=== PATIENT | female | born 1970 | race Caucasian/White ===

== ENCOUNTER 2016-07-17 17:17 | Emergency (ER) | payer OTHER ==
[~2016-07-17] VITALS: Ht 165.1 cm; Wt 54.4 kg
[~2016-07-17 17:17] MED LIST: ZANTAC150 MG PO
[2016-07-17 18:21] VITALS: BP 146/101
--- NOTE | 2016-07-17 19:05 | NUR ---
PATIENT TO BED 06.
--- NOTE | 2016-07-17 19:38 | NUR ---
PATIENT PRESENTS TO ED WITH RT FLANK PAIN . PT STATES PAIN HAS BEEN SHARP AND CONSTANT FOR THE PAST 2 DAYS. HX OF ASTHMA . DENIES N/V/D; SKIN IS PINK/WARM/DRY; AAOX4 WITH EVEN AND STEADY GAIT; LUNGS CLEAR BL; HR EVEN AND REGULAR; PT DENIES ANY FEVER, CP, SOB, OR COUGH AT THIS TIME; PATIENT STATES PAIN OF 9/10 AT THIS TIME; VSS; PATIENT POSITIONED FOR COMFORT; HOB ELEVATED; BEDRAILS UP X2; BED DOWN. ER MD MADE AWARE OF PT STATUS.
[2016-07-17] MEDS ORDERED: HYDROcodone/APAP 5/325 MG 1 TAB TAB PO ONE ×2 (20:35→21:15)
--- NOTE | 2016-07-17 20:46 | NUR ---
Patient appears to be resting comfortably in bed. Vital Signs within normal limits. Respirations even and unlabored.
--- NOTE | 2016-07-17 21:09 | NUR ---
Dr. Quezada evaluating patient at bedside.
[2016-07-17 21:32] VITALS: BP 122/76
--- NOTE | 2016-07-17 21:34 | NUR ---
Patient discharged with v/s stable. Written and verbal after care instructions given and explained. Patient alert, oriented and verbalized understanding of instructions. Ambulatory with steady gait. All questions addressed prior to discharge. ID band removed. Patient advised to follow up with PMD.NONE Rx given. Patient educated on indication of medication including possible reaction and side effects. Opportunity to ask questions provided and answered.
== END 2016-07-17 21:34 | disposition home or self-care (01) ==
LOC: MED 17:17
DX: N20.0 Calculus of kidney (principal); R31.9 Hematuria, unspecified; J45.909 Unspecified asthma, uncomplicated; F17.210 Nicotine dependence, cigarettes, uncomplicated; Z88.0 Allergy status to penicillin; Z88.1 Allergy status to other antibiotic agents; Z88.5 Allergy status to narcotic agent; Z88.8 Allergy status to other drugs, medicaments and biological substances; Z71.6 Tobacco abuse counseling
CPT/HCPCS: 76770; 81001; 81025; 87086; 99285; Q0092

== ENCOUNTER 2016-08-23 14:10 | Emergency (ER) | payer OTHER ==
[~2016-08-23] VITALS: Ht 165.1 cm; Wt 49.9 kg
[2016-08-23 14:13] VITALS: BP 141/103
[2016-08-23] MEDS ORDERED: NACL 0.9% 1,000 ML IV SCH (14:48)
[2016-08-23] MEDS ORDERED: fentaNYL 0.05 MG/ML VIAL IVP ONE (14:50)
--- NOTE | 2016-08-23 14:50 | NUR ---
46F BIB SELF C/O RT FLANK PAIN X 3 DAYS. DENIES N/V/D; SKIN IS PINK/WARM/DRY; AAOX4 WITH EVEN AND STEADY GAIT; LUNGS CLEAR BL; HR EVEN AND REGULAR; PT DENIES ANY FEVER, CP, SOB, OR COUGH AT THIS TIME; PATIENT STATES PAIN OF 9/10 AT THIS TIME; VSS; PATIENT POSITIONED FOR COMFORT; HOB ELEVATED; BEDRAILS UP X2; BED DOWN. ER MD MADE AWARE OF PT STATUS.
[2016-08-23] MEDS ORDERED: MORPHINE SULFATE 5 MG/ML VIAL IVP ONE ×2 (15:05→16:10)
[2016-08-23] MEDS ORDERED: MORPHINE SULFATE 10 MG/ML SYR IVP SCH (15:11)
--- NOTE | 2016-08-23 17:22 | NUR ---
AAO PT TAKEN TO CT VIA WHEEL CHAIR BE TECH
--- NOTE | 2016-08-23 17:30 | NUR ---
AAO PT BACK FROM CT PLACED BACK ON MONITOR
[2016-08-23 18:40] VITALS: BP 113/74
--- NOTE | 2016-08-23 18:40 | NUR ---
Patient discharged with v/s stable. Written and verbal after care instructions given and explained. Patient alert, oriented and verbalized understanding of instructions. Ambulatory with steady gait. All questions addressed prior to discharge. ID band removed. Patient advised to follow up with PMD. Rx of DANICA AUGUSTE given. Patient educated on indication of medication including possible reaction and side effects. Opportunity to ask questions provided and answered.
== END 2016-08-23 18:40 | disposition home or self-care (01) ==
LOC: MED 14:10
DX: N23 Unspecified renal colic (principal); Q61.5 Medullary cystic kidney; R03.0 Elevated blood-pressure reading, without diagnosis of hypertension; J45.909 Unspecified asthma, uncomplicated; F17.200 Nicotine dependence, unspecified, uncomplicated; Z71.6 Tobacco abuse counseling; Z88.0 Allergy status to penicillin; Z88.5 Allergy status to narcotic agent; Z88.6 Allergy status to analgesic agent; Z88.8 Allergy status to other drugs, medicaments and biological substances; Z87.442 Personal history of urinary calculi
CPT/HCPCS: 36415; 74176; 80053; 81001; 81025; 82150; 83690; 85025; 96361; 96374; 96376; 99285; J2270; J7030